=== PATIENT | female | born 1995 | race Two or more races ===

== ENCOUNTER 2017-05-20 03:56 | Emergency (ER) | payer OTHER ==
--- NOTE | 2017-05-20 04:04 | EDPHY ---
H & P Stated Complaint: headache HPI/ROS: HPI CHIEF COMPLAINT: Sore throat, dry cough, fever, headache HISTORY OF PRESENT ILLNESS: This patient is a very pleasant 22-year-old female she is otherwise healthy does not have any significant medical history or surgical history does not take any daily medications she presents emergency room with 48 hours of flu-like illness. She reports muscle aches, joint pain, chills. Reports sore throat and fever. Also distally reports headache. Was unable to sleep tonight. Took Motrin earlier in the day. She arrives to the emergency room in her main complaint is sore throat. Nonproductive cough. No shortness of breath. Denies chest pain. No neck pain or stiff neck. Does complain of a mild headache. Additionally she reports muscle aches and joint pain. Upon arrival to the emergency room she noted to be tachycardic and febrile. Nontoxic appearing Past Medical History: No significant medical history Past Surgical History: No significant surgical history Social History: Denies daily use drugs alcohol tobacco products. [employer]. Family History: Noncontributory. ROS REVIEW OF SYSTEMS: A comprehensive 10 point review of systems is otherwise negative aside from elements mentioned in the history of present illness. Exam Constitutional appears well nontoxic, triage nursing summary reviewed, vital signs reviewed, awake/alert. Febrile and tachycardic. Eyes normal conjunctivae and sclera, EOMI, PERRLA. HENT posterior pharynx mild erythema, no significant exudate, uvula midline, no significant swelling, TMs clear bilaterally. normal inspection, atraumatic, moist mucus membranes, no epistaxis, neck supple/ no meningismus, no raccoon eyes. Respiratory clear to auscultation bilaterally, normal breath sounds, no respiratory distress, no wheezing. Cardiovascular tachycardic, regular rhythm, no murmur, no edema, distal pulses normal. Gastrointestinal soft, non-tender, no rebound, no guarding, normal bowel sounds, no distension, no pulsatile mass. Genitourinary no CVA tenderness. Musculoskeletal no midline vertebral tenderness, full range of motion, no calf swelling, no tenderness of extremities, no meningismus, good pulses, neurovascularly intact. Skin pink, warm, & dry, no rash, skin atraumatic. Neurologic awake, alert and oriented x 3, AAOx3, moves all 4 extremities equally, motor intact, sensory intact, CN II-XII intact, normal cerebellar, normal vision, normal speech. Psychiatric normal mood/affect. Heme/Lymph/Immune no lymphadenopathy. Differential Diagnosis: Includes but is not limited to in a particular order, viral syndrome, upper respiratory tract infection, strep pharyngitis, viral pharyngitis, influenza. Medical Decision Making: Plan for this patient get pain control and antipyretic with Tylenol Motrin, p.o. fluids. Rapid strep test and influenza and re-evaluate. Re-evaluation: ED x-ray chest two view negative for acute cardiopulmonary disease. 0636: On re-examination this patient is feeling much better. Fevers down with Tylenol Motrin. Heart rate is 98. Down from the 120s when she arrived here. Her chest x-ray has been reviewed shows no acute pneumonia. Negative influenza negative strep. However given her fever and sore throat I will treat for strep pharyngitis. 1st dose of azithromycin given in emergency room and a prescription for the rest. She understands drink lots of fluids stay well- hydrated. Alternate Tylenol Motrin for fever control. And return to the emergency room if she has worsening symptoms includes high fever, vomiting or feeling worse. Her neck is supple. No signs of meningeal signs. I do not feel that she needs any further imaging. Source: Patient - Personal History LMP (Females 10-55): 15-21 Days Ago Current Tetanus/Diphtheria Vaccine: Unsure - Medical/Surgical History Other PMH: PMHx: denies. PSHx: denies - Social History Smoking Status: Current some day smoker Constitutional: Initial Vital Signs Temperature (C) 38.6 C H 05/20/17 03:58 Heart Rate 120 H 05/20/17 03:58 Respiratory Rate 16 05/20/17 03:58 Blood Pressure 126/75 H 05/20/17 03:58 O2 Sat (%) 93 05/20/17 03:58 O2 Delivery Mode Room Air Allergies/Adverse Reactions: No Known Allergies Allergy (Unverified 05/20/17 03:58) Home Medications: Medication Instructions Recorded AZITHROMYCIN [Z-PACK] 250 mg PO DAILY #6 tab 05/20/17 Medical Decision Making - Data Points Laboratory Results: Laboratory Results 05/20/17 05:52 05/20/17 05:52 05/20/17 05/20/17 05/20/17 Unknown 05:52 05:52 WBC 5.44 10^3/uL 10^3/uL (3.80-9.50) RBC 5.03 10^6/uL 10^6/uL (4.18-5.33) Hgb 13.4 g/dL g/dL (12.6-16.3) Hct 40.3 % % (38.0-47.0) MCV 80.1 fL L fL (81.5-99.8) MCH 26.6 pg L pg (27.9-34.1) MCHC 33.3 g/dL g/dL (32.4-36.7) RDW 13.6 % % (11.5-15.2) Plt Count 220 10^3/uL 10^3/uL (150-400) MPV 11.8 fL H fL (8.7-11.7) Neut % (Auto) 69.3 % % (39.3-74.2) Lymph % (Auto) 17.6 % % (15.0-45.0) [place] % (Auto) 11.2 % % (4.5-13.0) Eos % (Auto) 1.1 % % (0.6-7.6) Baso % (Auto) 0.4 % % (0.3-1.7) Nucleat RBC Rel Count 0.0 % % (0.0-0.2) Absolute Neuts (auto) 3.77 10^3/uL 10^3/uL (1.70-6.50) Absolute Lymphs (auto) 0.96 10^3/uL L 10^3/uL (1.00-3.00) Absolute Monos (auto) 0.61 10^3/uL 10^3/uL (0.30-0.80) Absolute Eos (auto) 0.06 10^3/uL 10^3/uL (0.03-0.40) Absolute Basos (auto) 0.02 10^3/uL 10^3/uL (0.02-0.10) Absolute Nucleated RBC 0.00 10^3/uL 10^3/uL (0-0.01) Immature Gran % 0.4 % % (0.0-1.1) Immature Gran # 0.02 10^3/uL 10^3/uL (0.00-0.10) Sodium 141 mEq/L mEq/L (134-144) Potassium 4.3 mEq/L mEq/L (3.5-5.2) Chloride 107 mEq/L mEq/L (97-110) Carbon Dioxide 21 mEq/l L mEq/l (22-31) Anion Gap 13 mEq/L mEq/L (8-16) BUN 9 mg/dL mg/dL (7-23) Creatinine 0.6 mg/dL mg/dL (0.6-1.0) Estimated GFR > 60 Glucose 113 mg/dL H mg/dL (70-100) Calcium 9.2 mg/dL mg/dL (8.5-10.4) Urine Color Urine Appearance Urine pH Ur Specific [place] Urine Protein Urine Ketones Urine Blood Urine Nitrate Urine Bilirubin Urine Urobilinogen Ur Leukocyte Esterase Urine RBC Urine WBC Ur Epithelial Cells Urine Mucus Urine Glucose Nasal Influenza A PCR Nasal Influenza B PCR Group A Strep Screen Group A Strep DNA Pending 05/20/17 05/20/17 05:34 04:09 WBC RBC Hgb Hct MCV MCH MCHC RDW Plt Count MPV Neut % (Auto) Lymph % (Auto) [place] % (Auto) Eos % (Auto) Baso % (Auto) Nucleat RBC Rel Count Absolute Neuts (auto) Absolute Lymphs (auto) Absolute Monos (auto) Absolute Eos (auto) Absolute Basos (auto) Absolute Nucleated RBC Immature Gran % Immature Gran # Sodium Potassium Chloride Carbon Dioxide Anion Gap BUN Creatinine Estimated GFR Glucose Calcium Urine Color YELLOW Urine Appearance HAZY Urine pH 6.0 (5.0-7.5) Ur Specific [place] 1.025 (1.002-1.030) Urine Protein NEGATIVE (NEGATIVE) Urine Ketones 1+ H (NEGATIVE) Urine Blood 2+ H (NEGATIVE) Urine Nitrate NEGATIVE (NEGATIVE) Urine Bilirubin NEGATIVE (NEGATIVE) Urine Urobilinogen NEGATIVE EU EU (0.2-1.0) Ur Leukocyte Esterase NEGATIVE (NEGATIVE) Urine RBC 1-3 /hpf /hpf (0-3) Urine WBC 3-5 /hpf H /hpf (0-3) Ur Epithelial Cells TRACE /lpf /lpf (NONE-1+) Urine Mucus 4+ /lpf H /lpf (NONE-1+) Urine Glucose NEGATIVE (NEGATIVE) Nasal Influenza A PCR NEGATIVE FOR FLU A (NEGATIVE) Nasal Influenza B PCR NEGATIVE FOR FLU B (NEGATIVE) Group A Strep Screen NEGATIVE (NEGATIVE) Group A Strep DNA Medications Given: Discontinued Medications Acetaminophen (Tylenol) 1,000 mg PO EDNOW ONE Stop: 05/20/17 04:08 Last Admin: 05/20/17 04:20 Dose: 1,000 mg Sodium Chloride (Ns) 1,000 mls @ 0 mls/hr IV EDNOW ONE; Wide Open PRN Reason: Protocol Stop: 05/20/17 05:42 Last Admin: 05/20/17 05:55 Dose: 1,000 mls Sodium Chloride (Ns) 1,000 mls @ 0 mls/hr IV EDNOW ONE; Wide Open PRN Reason: Protocol Stop: 05/20/17 05:42 Last Admin: 05/20/17 05:55 Dose: 1,000 mls Ibuprofen (Motrin) 800 mg PO EDNOW ONE Stop: 05/20/17 04:10 Last Admin: 05/20/17 04:20 Dose: 800 mg Departure - Departure Disposition: Home, Routine, Self-Care Clinical Impression: Febrile illness, Viral syndrome Pharyngitis Qualifiers: Pharyngitis/tonsillitis etiology: streptococcus Qualified Code(s): J02.0 - Streptococcal pharyngitis Condition: Good Instructions: Viral Syndrome (ED), Pharyngitis (ED), Fever in Adults (ED) Additional Instructions: 1. Make sure to drink lots of fluids stay well-hydrated. 2. Alternate Tylenol Motrin every 4-6 hours for fever and pain control. 3. Return to the emergency room if you have worsening symptoms questions or concerns. 4. Take her antibiotic as prescribed. Referrals: NONE *PRIMARY CARE P,. [Primary Care Provider] - As per Instructions Prescriptions: AZITHROMYCIN [Z-PACK] 250 mg PO DAILY #6 tab
[2017-05-20] MEDS ORDERED: ACETAMINOPHEN 500 MG TAB PO ONE (04:07)
[2017-05-20] MEDS ORDERED: IBUPROFEN 800 MG TAB PO ONE (04:09)
[2017-05-20 04:47] LABS: STREP SCREEN RAPID NEGATIVE (NEGATIVE)
[2017-05-20] MEDS ORDERED: NS 1,000 ML IV ONE ×2 (05:41)
[2017-05-20 05:58] LABS: COLOR YELLOW; LEUKOCYTE ESTERASE,URINE NEGATIVE (NEGATIVE); NITRITE,URINE NEGATIVE (NEGATIVE)
[2017-05-20 06:10] LABS: MUCUS 4+ /lpf (NONE-1+)
[2017-05-20 06:10] LABS: % IMMATURE GRANULYOCYTES 0.4 % (0.0-1.1); ABSOLUTE IMMATURE GRANULOCYTES 0.02 10^3/uL (0.00-0.10); ADD DIFF? NO; ADD MORPH? NO; ADD SCAN? NO; ATYPICAL LYMPHOCYTE FLAG 10 (0-99); FRAGMENT RBC FLAG 0 (0-99); HEMATOCRIT 40.3 % (38.0-47.0); HEMOGLOBIN 13.4 g/dL (12.6-16.3); LEFT SHIFT FLG 0 (0-99); LIPEMIA HEMOLYSIS FLAG 80 (0-99); MEAN CELL HEMOGLOBIN 26.6 pg (27.9-34.1); MEAN CELL HEMOGLOBIN CONCENTR. 33.3 g/dL (32.4-36.7); MEAN CELL VOLUME 80.1 fL (81.5-99.8); MEAN PLATELET VOLUME 11.8 fL (8.7-11.7); PLATELET CLUMPS FLAG 30 (0-99); PLATELET COUNT 220 10^3/uL (150-400); RED BLOOD CELL COUNT 5.03 10^6/uL (4.18-5.33); RED CELL DISTRIBUTION WIDTH 13.6 % (11.5-15.2)
[2017-05-20 06:15] VITALS: BP 108/69; PULSE 109; RESP 18; TEMP 99; O2SAT 95
[2017-05-20 06:27] LABS: ANION GAP 13 mEq/L (8-16); CALCIUM 9.2 mg/dL (8.5-10.4); CARBON DIOXIDE 21 mEq/l (22-31); CHLORIDE 107 mEq/L (97-110); CREATININE 0.6 mg/dL (0.6-1.0); GLOMERULAR FILTRATION RATE > 60; GLUCOSE 113 mg/dL (70-100); POTASSIUM 4.3 mEq/L (3.5-5.2); SODIUM 141 mEq/L (134-144)
[2017-05-20] MEDS ORDERED: AZITHROMYCIN 250 MG TAB PO ONE (06:39)
== END 2017-05-20 06:55 | disposition home or self-care (01) ==
DX: J02.0 Streptococcal pharyngitis (principal); B34.9 Viral infection, unspecified; F17.200 Nicotine dependence, unspecified, uncomplicated; E86.9 Volume depletion, unspecified

== ENCOUNTER 2017-05-20 17:53 | Emergency (ER) | payer OTHER ==
[2017-05-20 18:09] VITALS: RESP 18
[2017-05-20] MEDS ORDERED: NS 1,000 ML IV ONE ×2 (18:48→19:40)
--- NOTE | 2017-05-20 18:52 | EDPHY ---
General - History Smoking Status: Current some day smoker Narrative: CHIEF COMPLAINT: Chest pain, sore throat, palpitations HISTORY OF PRESENT ILLNESS: Patient return to the emergency department with complaints of chest pain and continuing sore throat. She was here earlier today with flu-like symptoms. Her flu test was negative. Her strep test was negative. Laboratory studies were unremarkable. She was discharged home with Zithromax for the possibility of bacterial pharyngitis. She says she took a medication with sleep. She will feeling worse with an onset of chest pain. It is left-sided chest pain with palpitations. The pain radiates into the back. Moderate to severe. Worse with inspiration. No shortness of breath. No cough at this time. At this time of examination, she is somewhat better than 1 hour ago. No predictable modifying factors. No recent travel or surgery. No history of venous thrombolic event. No oral contraceptive use. No other associated complaints or modifying factors REVIEW OF SYSTEMS: Ten systems reviewed and are negative unless otherwise noted in the HPI PCP: None SPECIALISTS: None PAST MEDICAL HISTORY: None PAST SURGICAL HISTORY: None SOCIAL HISTORY: Currently a student at [employer]. Originally from [facility] [place] FAMILY HISTORY: Noncontributory EXAMINATION General Appearance: Alert, no distress Head: normocephalic, atraumatic Eyes: Pupils equal and round, no conjunctival pallor or injection ENT, Mouth: Mucous membranes moist. Airway is widely patent. Uvula midline. Mild erythema. Neck: Normal inspection, supple, non-tender. No meningismus. Painless range of motion all planes. Respiratory: Lungs are clear to auscultation no wheezing, rhonchi or crackles Cardiovascular: Regular rate and rhythm. No murmur. Pulses intact distally symmetrically Gastrointestinal: Abdomen is soft and nontender. No tympany. No distention. No rigidity. Back: non-tender, no bony abnormalities Neurological: GCS 15. A&O, nonfocal, strength symmetric. Skin: Warm and dry, no rash no petechiae or purpura Extremities: Nontender, no pedal edema. no evidence of DVT Psychiatric: Mood and affect normal DIFFERENTIAL DIAGNOSES: Including but not limited to pleurisy, pneumonia, pneumonitis, PE, flu, viral illness, pericarditis MDM: 6:48 p.m. Pleuritic chest pain that is worse with inspiration. She is mildly tachycardic. Given the confluence of symptoms, I have ordered a D-dimer due to pleuritic chest pain with tachycardia. She is in no acute distress. She was here earlier today with no complaints of chest pain at this time. I did not reorder chest x-ray as she had this done 12 hours ago. EKG has been ordered. Laboratory studies ordered. IV fluid ordered. Monitor closely. 7:40 p.m. CBC, chemistry are unremarkable. D-dimer is negative. I have ordered Toradol for her pain, which I suspect is viral or pleurisy in etiology. Troponin is pending at this time. 8:20 p.m. I re-evaluated the patient. She is feeling significantly better after the IV fluid and Toradol. She would like to go home. I do feel this likely viral etiology, likely pleurisy. We discussed continuation of ibuprofen or Aleve but not both. We discussed Tylenol increase fluid intake. We discussed follow up on [facility]. We discussed ED precautions. She is comfortable this plan. She is discharged home in stable condition. (Main Gómez) Discussion: The patient was evaluated and managed by the Physician Housing Development Specialist/ Nurse Practitioner. I discussed the patient's presentation and course with the midlevel provider with them and agree with the evaluation. My co-signature indicates that I have reviewed this chart and I agree with the findings and plan of care as documented. I am the secondary supervising physician. (Anita Taylor) - Objective Vital Signs: Initial Vital Signs Temperature (C) 38 C 05/20/17 18:06 Heart Rate 101 H 05/20/17 18:06 Respiratory Rate 18 05/20/17 18:06 Blood Pressure 127/79 H 05/20/17 18:06 O2 Sat (%) 99 05/20/17 18:06 O2 Delivery Mode Room Air Allergies/Adverse Reactions: No Known Allergies Allergy (Verified 05/20/17 18:05) Home Medications: Medication Instructions Recorded AZITHROMYCIN [Z-PACK] 250 mg PO DAILY #6 tab 05/20/17 Laboratory Results: Laboratory Results 05/20/17 19:00 05/20/17 19:00 Medications Given: Discontinued Medications Acetaminophen (Tylenol) 1,000 mg PO EDNOW ONE Stop: 05/20/17 20:10 Last Admin: 05/20/17 20:12 Dose: 1,000 mg Sodium Chloride (Ns) 1,000 mls @ 0 mls/hr IV EDNOW ONE; Wide Open PRN Reason: Protocol Stop: 05/20/17 18:49 Last Admin: 05/20/17 19:27 Dose: 1,000 mls Sodium Chloride (Ns) 1,000 mls @ 0 mls/hr IV EDNOW ONE; Wide Open PRN Reason: Protocol Stop: 05/20/17 19:41 Last Admin: 05/20/17 19:47 Dose: 1,000 mls Ketorolac Tromethamine (Toradol) 30 mg IVP EDNOW ONE Stop: 05/20/17 19:41 Last Admin: 05/20/17 19:46 Dose: 30 mg Departure - Departure Disposition: Home, Routine, Self-Care Clinical Impression: Chest pain, Pleurisy, Acute pharyngitis Condition: Good Instructions: Pleurisy (ED), Pharyngitis (ED), Viral Syndrome (ED) Additional Instructions: 1. Ibuprofen 600-800 mg every 8 hours as needed or Aleve, 1 pill twice daily as needed but not both of these 2. Tylenol 750-1000 mg every 6-8 hours as needed 3. ED precautions as discussed 4. Follow up on campus [facility] Referrals: NONE *PRIMARY CARE P,. [Primary Care Provider] - As per Instructions Sinan Mendez MD [Medical Doctor] - As per Instructions [facility],. [Clinic] - As per Instructions [facility] [Cl[facility]] - As per Instructions Stand Alone Forms: School Excuse
--- NOTE | 2017-05-20 19:12 | CPEKG ---
Heart Rate: 102 RR Interval: 588 P-R Interval: 140 QRSD Interval: 78 QT Interval: 312 QTC Interval: 407 P [place]: 53 QRS [place]: 65 T Wave [place]: 37 EKG Severity - OTHERWISE NORMAL ECG - EKG Impression: SINUS TACHYCARDIA Electronically Signed By: Fabio Browne 22-May-2017 17:17:51
[2017-05-20 19:13] LABS: % IMMATURE GRANULYOCYTES 0.5 % (0.0-1.1); ABSOLUTE IMMATURE GRANULOCYTES 0.02 10^3/uL (0.00-0.10); ADD DIFF? NO; ADD MORPH? NO; ADD SCAN? NO; ATYPICAL LYMPHOCYTE FLAG 0 (0-99); FRAGMENT RBC FLAG 0 (0-99); HEMOGLOBIN 12.9 g/dL (12.6-16.3); LEFT SHIFT FLG 0 (0-99); LIPEMIA HEMOLYSIS FLAG 80 (0-99); MEAN CELL HEMOGLOBIN 26.5 pg (27.9-34.1); MEAN CELL HEMOGLOBIN CONCENTR. 32.3 g/dL (32.4-36.7); MEAN CELL VOLUME 82.3 fL (81.5-99.8); MEAN PLATELET VOLUME 11.4 fL (8.7-11.7); PLATELET CLUMPS FLAG 30 (0-99); PLATELET COUNT 191 10^3/uL (150-400); RED BLOOD CELL COUNT 4.86 10^6/uL (4.18-5.33); RED CELL DISTRIBUTION WIDTH 13.5 % (11.5-15.2)
[2017-05-20 19:27] VITALS: BP 131/73; PULSE 104; TEMP 100.9; O2SAT 97
[2017-05-20 19:32] LABS: ANION GAP 6 mEq/L (8-16); CALCIUM 9.1 mg/dL (8.5-10.4); CARBON DIOXIDE 23 mEq/l (22-31); CHLORIDE 107 mEq/L (97-110); CREATININE 0.6 mg/dL (0.6-1.0); GLOMERULAR FILTRATION RATE > 60; GLUCOSE 101 mg/dL (70-100); POTASSIUM 3.8 mEq/L (3.5-5.2); SODIUM 136 mEq/L (134-144)
[2017-05-20] MEDS ORDERED: KETOROLAC 30 MG/1 ML SDV IVP ONE (19:40)
[2017-05-20 19:44] LABS: TROPONIN I < 0.012 ng/mL (0.000-0.034)
[2017-05-20] MEDS ORDERED: ACETAMINOPHEN 500 MG TAB PO ONE (20:09)
== END 2017-05-20 20:54 | disposition home or self-care (01) ==
DX: R07.9 Chest pain, unspecified (principal); R09.1 Pleurisy; J02.9 Acute pharyngitis, unspecified; F17.200 Nicotine dependence, unspecified, uncomplicated; E86.9 Volume depletion, unspecified
CPT/HCPCS: 96374; J1885